=== PATIENT | male | born 1980 | race Hispanic/Latino ===

== ENCOUNTER 2018-08-22 16:53 | Emergency (ER) | payer SELFPAY ==
[2018-08-22 17:10] VITALS: O2SAT 99
--- NOTE | 2018-08-22 17:50 | ED PDOC ---
Arrival/HPI - General Chief Complaint: Alcohol Ingestion Historian: Patient, EMS - History of Present Illness Narrative History of Present Illness (Text): 08/22/18 17:47 Patient presents via EMS after "he was found sitting outside someone's house drunk" as per EMS report. Patient denies injury or overdose. He denies pain or discomfort. He denies headache. He denies numbness, tingling, or weakness. Denies palpitations. Denies bloody urine or stool. He admits to "drinking a lot" today. Denies tremors or bloody urine or stool. Past Medical History - Psychiatric Hx Substance Use: Yes Family/Social History Family/Social History: Unknown Family HX Smoking Status: Former Smoker Hx Alcohol Use: Yes Frequency of alcohol use: Daily Hx Substance Use: Yes Allergies/Home Meds Allergies/Adverse Reactions: Allergies No Known Allergies Allergy (Verified 08/22/18 17:01) Home Medications: Home Meds Medication Instructions Recorded Confirmed No Known Home Med 08/22/18 08/22/18 Review of Systems - Review of Systems Systems not reviewed;Unavailable: Intoxicated Constitutional: absent: Fevers Respiratory: absent: SOB Cardiovascular: absent: Chest Pain Gastrointestinal: absent: Abdominal Pain, Nausea, Vomiting Genitourinary Male: absent: Dysuria Musculoskeletal: absent: Back Pain, Neck Pain Neurological: absent: Headache, Dizziness, Focal Weakness Hemo/Lymphatic: absent: Easy Bleeding Psychiatric: absent: Depression, Suicidal Ideation Physical Exam Vital Signs Reviewed: Yes Vital Signs Temp Pulse Resp BP Pulse Ox 08/22/18 16:53 98.4 F 102 H 18 153/88 H 99 Temperature: Afebrile Appearance: Positive for: Non-Toxic, Comfortable Mental Status: Positive for: Alert and Oriented X 3 - Systems Exam Head: Present: Atraumatic Pupils: Present: PERRL Mouth: Present: Moist Mucous Membranes Pharnyx: No: ERYTHEMA Nose (External): Present: Atraumatic Neck: Present: Normal Range of Motion. No: Meningeal Signs Respiratory/Chest: Present: Clear to Auscultation. No: Respiratory Distress Cardiovascular: Present: Regular Rate and Rhythm Abdomen: No: Tenderness Upper Extremity: Present: NORMAL PULSES. No: Tenderness, Swelling Lower Extremity: Present: NORMAL PULSES, Neurovascularly Intact. No: Edema, CALF TENDERNESS Neurological: Present: Motor Func Grossly Intact, Normal Sensory Function, Norm Deep Tendon Reflexes, Memory Normal, Normal 2Pt Descrimination. No: Speech Normal (mild slurred speech) Skin: Present: Warm Psychiatric: Present: Alert, Intoxicated. No: Anxious, Depressed Mood, Suicidal Ideation, Homicidal Ideation, Delusional, Hallucinations, Lethargic Medical Decision Making ED Course and Treatment: 08/22/18 19:23 Patient admits to drinking alcohol. No trauma noted or reported. Denies suidical or homicidal ideation. States he "just wants my skateboard and I want to go home". He denies fall or injury. He was observed with serial exams performed in ED and remains alert, cooperative with no respiratory distress or signs of trauma. Will continue serial exams until clinically sober. 08/22/18 19:25 Patient not tremulous or tachycardic. 08/22/18 20:[address] Meek Keating pending clinical sobriety, re-exam. Patient is conversive, alert, denies pain or discomfort. Disposition/Present on Arrival - Present on Arrival Any Indicators Present on Arrival: No History of DVT/PE: No History of Uncontrolled Diabetes: No Urinary Catheter: No History of Decub. Ulcer: No History Surgical Site Infection Following: None - Disposition Have Diagnosis and Disposition been Completed?: Yes Diagnosis: Alcohol intoxication Disposition: HOSPITALIZED Disposition Time: 20:00 Patient Plan: Observation Condition: STABLE Discharge Instructions (ExitCare): Alcohol Use - When Is Drinking a Problem?, Alcohol Abuse and Alcoholism (DC) Additional Instructions: FOLLOW UP WITH CLINIC OR YOUR PRIMARY CARE DOCTOR FOR YOU DRINKING. STOP DRINKING MUCH. ALSO FOLLOWUP WITH DR. KING FOR THE BLOOD IN YOUR URINE BRAD TORRES, thank you for letting us take care of you today. Your provider was Meek Keating and you were treated for ETOH. The emergency medical care you received today was directed at your acute symptoms. If you were prescribed any medication, please fill it and take as directed. It may take several days for your symptoms to resolve. Return to the Emergency Department if your symptoms worsen, do not improve, or if you have any other problems. Please contact your doctor or call one of the physicians/clinics you have been referred to that are listed on the Patient Visit Information form that is included in your discharge packet. Bring any paperwork you were given at discharge with you along with any medications you are taking to your follow up visit. Our treatment cannot replace ongoing medical care by a primary care provider outside of the emergency department. Thank you for allowing the [facility] team to be part of your care today. If you had an X-Ray or CT scan: A Radiologist will review the ED reading if any change in treatment is needed we will contact you. If you had a blood, urine, or wound culture: It will take several days for the results, if any change in treatment is needed we will contact you. If you had an STI test: It will take 48 hours for the results. Please call after 1 week if you have not heard back. Referrals: [facility] [Outside] - Follow up with primary [facility] [Outside] - Follow up with primary [place] [Outside] - Follow up with primary [facility] [place] [facility] [place] - Follow up with primary Giacomo King MD [Staff Provider] - Follow up with primary Erlinda Doyle MD [Medical Doctor] - Follow up with primary Forms: [facility] ([place])
[2018-08-22 19:11] VITALS: TEMP 98
--- NOTE | 2018-08-22 20:24 | ED PDOC ---
Physical Exam Vital Signs Temp Pulse Resp BP Pulse Ox 08/22/18 19:11 98 F 85 17 138/86 99 08/22/18 16:53 98.4 F 102 H 18 153/88 H 99 Temperature: Afebrile Blood Pressure: Normal Pulse: Regular Respiratory Rate: Normal Appearance: Positive for: Well-Appearing Pain Distress: None Mental Status: Positive for: Alert and Oriented X 3 - Systems Exam Head: Present: Atraumatic, Normocephalic. No: Tenderness, Contusion Pupils: Present: PERRL Extroacular Muscles: Present: EOMI Conjunctiva: Present: Normal Ears: Present: Normal, NORMAL TM Mouth: Present: Moist Mucous Membranes Pharnyx: Present: Normal. No: ERYTHEMA, EXUDATE Nose (Internal): Present: Normal Inspection, No Active Bleeding Neck: Present: Normal Range of Motion. No: Meningeal Signs, MIDLINE TENDERNESS, JVD Respiratory/Chest: Present: Clear to Auscultation, Good Air Exchange Cardiovascular: Present: Regular Rate and Rhythm, Normal S1, S2. No: Murmurs Abdomen: Present: Normal Bowel Sounds. No: Tenderness, Distention Back: Present: Normal Inspection. No: CVA Tenderness, Midline Tenderness Upper Extremity: Present: Normal Inspection, Normal ROM, NORMAL PULSES. No: Cyanosis, Edema Lower Extremity: Present: Normal Inspection, NORMAL PULSES. No: Edema Neurological: Present: GCS=15, CN II-XII Intact, Speech Normal Skin: Present: Warm, Dry Psychiatric: Present: Alert, Oriented x 3, Normal Insight (alcohol on breath), Intoxicated Medical Decision Making ED Course and Treatment: 08/22/18 20:23 Patient signed out to me by Dr. Keating. 38 yr old male p/w alcohol intoxication. No signs or indication from pt or EMS / previous team of trauma. Pt denies any pain at any point and denies any SI or HI / depression / hallucinations or anxiety. No LOC. Given first visit here pt is pending Labs and clinical sobreity. Pt in NAD. No meningeal signs, abd tenderness, back tenderness complaints of c/p or sob. 08/22/18 21:13 labs largely unremarkable outside of hematuria which was endorsed to pt to f/u urology. Etoh also elevated, pt clears at 0400. pt in NAD 08/23/18 0400 Strong steady gait, no signs of withdrawal, pt remains with out complaints, given return indications and f/u as well as recc to decrease etoh use. Pt agreeable to plan. Disposition/Present on Arrival - Present on Arrival Any Indicators Present on Arrival: No History of DVT/PE: No History of Uncontrolled Diabetes: No Urinary Catheter: No History of Decub. Ulcer: No History Surgical Site Infection Following: None - Disposition Have Diagnosis and Disposition been Completed?: Yes Diagnosis: Alcohol intoxication Disposition: HOSPITALIZED Disposition Time: 21:12 Condition: STABLE Discharge Instructions (ExitCare): Alcohol Use - When Is Drinking a Problem?, Alcohol Abuse and Alcoholism (DC) Additional Instructions: FOLLOW UP WITH CLINIC OR YOUR PRIMARY CARE DOCTOR FOR YOU DRINKING. STOP DRINKING MUCH. ALSO FOLLOWUP WITH DR. KING FOR THE BLOOD IN YOUR URINE BRAD TORRES, thank you for letting us take care of you today. Your provider was Meek Keating and you were treated for ETOH. The emergency medical care you received today was directed at your acute symptoms. If you were prescribed any medication, please fill it and take as directed. It may take several days for your symptoms to resolve. Return to the Emergency Department if your symptoms worsen, do not improve, or if you have any other problems. Please contact your doctor or call one of the physicians/clinics you have been referred to that are listed on the Patient Visit Information form that is included in your discharge packet. Bring any paperwork you were given at discharge with you along with any medications you are taking to your follow up visit. Our treatment cannot replace ongoing medical care by a primary care provider outside of the emergency department. Thank you for allowing the [facility] team to be part of your care today. If you had an X-Ray or CT scan: A Radiologist will review the ED reading if any change in treatment is needed we will contact you. If you had a blood, urine, or wound culture: It will take several days for the results, if any change in treatment is needed we will contact you. If you had an STI test: It will take 48 hours for the results. Please call after 1 week if you have not heard back. Referrals: Giacomo King MD [Staff Provider] - Follow up with primary [facility] [Outside] - Follow up with primary Erlinda Doyle MD [Medical Doctor] - Follow up with primary [facility] [Outside] - Follow up with primary [facility] [place] [Outside] - Follow up with primary [facility] [Outside] - Follow up with primary Forms: Dionna Knutson (Romanian)
[2018-08-22 20:43] LABS: BASO # 0.02 K/mm3 (0.0-2.0); BASO % 0.3 % (0.0-3.0); EOS # 0.2 (0.0-0.7); HEMOGLOBIN 14.2 g/dL (14.0-18.0); LYMPH # 3.9 (1.2-3.4); LYMPH % 51.1 % (22.0-35.0); MEAN CELL VOLUME 83.3 fl (80.0-105.0); MEAN CORPUSCULAR HEMOGLOBIN 27.6 pg (25.0-35.0); MEAN CORPUSCULAR HGB CONC 33.2 g/dl (31.0-37.0); MEAN PLATELET VOLUME 10.5 fl (7.0-11.0); MONO # 0.3 (0.1-0.6); MONO % 3.7 % (1.0-6.0); RBC 5.14 10^6/uL (3.5-6.1); RED CELL DISTRIBUTION WIDTH 13.4 % (11.5-14.5); WHITE BLOOD COUNT 7.6 10^3/uL (4.5-11.0)
[2018-08-22 20:52] LABS: ACETAMINOPHEN < 10.0 ug/ml (10.0-20.0); SALICYLATE < 1 mg/dL (2.0-20.0)
[2018-08-22 20:53] LABS: URINE BILIRUBIN NEGATIVE (NEGATIVE); URINE BLOOD LARGE (NEGATIVE); URINE GLUCOSE (UA) NEGATIVE (NEGATIVE); URINE LEUKOCYTE ESTERASE NEGATIVE Leu/uL (NEGATIVE); URINE PROTEIN 30 mg/dL (<30 mg/dL); URINE UROBILINOGEN 0.2 E.U./dL (<1 E.U./dL)
[2018-08-22 20:54] LABS: ALB/GLOB RATIO 1.3 (1.1-1.8); ALBUMIN 4.9 g/dL (3.0-4.8); ALT/SGPT 29 U/L (7-56); AST/SGOT 43 U/L (17-59); BLOOD UREA NITROGEN 14 mg/dL (7-21); CALCIUM 9.3 mg/dL (8.4-10.5); GFR NON-AFRICAN AMERICAN > 60
[2018-08-22 20:55] LABS: URINE APPEARANCE SLIGHT-CLOUDY (CLEAR); URINE COLOR YELLOW (YELLOW)
[2018-08-22 21:09] LABS: URINE BACTERIA OCC /hpf; URINE EPITHELIAL CELLS 0 - 2 /hpf (0-5); URINE WBC 0 - 2 /hpf (0-6)
[2018-08-22 21:22] LABS: BARBITURATES, UR NEGATIVE (NEGATIVE); BENZODIAZEPINES, UR NEGATIVE (NEGATIVE); OPIATES, UR NEGATIVE (NEGATIVE); PHENCYCLIDINE, UR NEGATIVE (NEGATIVE)
[2018-08-23 07:33] VITALS: BP 124/70; PULSE 80; RESP 16
== END 2018-08-23 04:00 | disposition short-term general hospital (02) ==
LOC: ED 16:53
DX: F10.129 Alcohol abuse with intoxication, unspecified (principal); Y90.8 Blood alcohol level of 240 mg/100 ml or more
CPT/HCPCS: 80053; 81001; 83735; 85025; 99283; G0480